=== PATIENT | female | born 1985 | race Hispanic/Latino ===

== ENCOUNTER 2019-09-18 17:08 | Emergency (ER) | payer OTHER ==
--- OUTSIDE RECORDS SUMMARY | 2019-09-18 17:10 | XMS REPORT ---
:1985 Author Organization [facility] Address [address] [place] [address] [address]. S[address]ano [address] [place] [address] Care Team Providers Name Role Phone Unavailable Unavailable Unavailable Payers Payer Name Policy Type Policy Number Effective Date Expiration Date Problems This patient has no known problems. Allergies, Adverse Reactions, Alerts Allergy Allergy Status Severity Reaction(s) Onset Inactive Treating Comments Name Type Date Date Clinician latex DA Active U 2017-10 00:00:0 0 Medications This patient has no known medications. Results Test Description Test Time Test Comments Text Results Atomic Results Result Comments HGB HCT 2019-06-01 08:36:00 Test Item Value Reference Range Comments HEMOGLOBIN (test code=HGB) 11.0 g/dL 10.7-13.9 HEMATOCRIT (test code=HCT) 35.4 % 32.1-42.1 AG HEPATITIS B [id number] 08:46:00 Test Item Value Reference Range Comments AG HEPATITIS B SURFACE (test code=HBSAG) NONREACTIVE NONREACTIVE IS CONSENT FORM SIGNED FOR HIV TESTING? YAB HEPATITIS C [id number] 08:46: 00 Test Item Value Reference Range Comments AB HEPATITIS C (test code=HCVAB) NONREACTIVE NONREACTIVE SIGNAL TO CUTOFF (test code=CUTOFF) <0.02 <0.80 IS CONSENT FORM SIGNED FOR HIV TESTING? YAB [id number] 08:46:00 Test Item Value Reference Range Comments AB TREPONEMA (test code=TREPAB) NONREACTIVE NONREACTIVE IS CONSENT FORM SIGNED FOR HIV TESTING? YAB HIV 1 08:46:00 Test Item Value Reference Range Comments AB HIV 1 2 (test NONREACTIVE NONREACTIVE Done by [employer] 4th code=MNL79QY) Gen HIV Ag/Ab Combo Screen IS CONSENT FORM SIGNED FOR HIV TESTING? YAG HEPATITIS B [id number] 08:22: 00 Test Item Value Reference Range Comments AG HEPATITIS B SURFACE (test code=HBSAG) NONREACTIVE NONREACTIVE IS CONSENT FORM SIGNED FOR HIV TESTING? YAB HEPATITIS C [id number] 08:22: 00 Test Item Value Reference Range Comments AB HEPATITIS C (test code=HCVAB) NONREACTIVE SIGNAL TO CUTOFF (test code=CUTOFF) <0.80 IS CONSENT FORM SIGNED FOR HIV TESTING? YAB [id number] 08:22:00 Test Item Value Reference Range Comments AB TREPONEMA (test code=TREPAB) NONREACTIVE NONREACTIVE IS CONSENT FORM SIGNED FOR HIV TESTING? YAB HIV 1 08:22:00 Test Item Value Reference Range Comments AB HIV 1 2 (test code=FYU18BM) NONREACTIVE IS CONSENT FORM SIGNED FOR HIV TESTING? YCOMPREHENSIVE METABOLIC [id number] 06:16:00 Test Item Value Reference Range Comments SODIUM (test code=NA) 136 mEq/L 135-145 POTASSIUM (test code=K) 5.9 mEq/L 3.5-5.0 CHLORIDE (test code=CL) 104 mEq/L 100-115 CARBON DIOXIDE (test code=CO2) 19 mEq/L 22-31 ANION GAP (test code=GAP) 18.90 10-20 GLUCOSE (test code=GLU) 122 mg/dL 65-110 BLOOD UREA NITROGEN (test code=BUN) 12 mg/dL 7-18 GLOMERULAR FILTRATION RATE (test code=GFR) 255 ml/min >60 CREATININE (test code=CREAT) 0.3 mg/dL 0.5-1.0 TOTAL PROTEIN (test code=PROT) 7.0 gm/dL 6.3-8.2 ALBUMIN (test code=ALB) 2.9 gm/dL 3.4-4.8 CALCIUM (test code=CA) 8.8 mg/dL 8.4-10.2 BILIRUBIN TOTAL (test code=BILT) 0.4 mg/dL 0.2-1.0 SGOT/AST (test code=AST) 77 units/L 15-37 SGPT/ALT (test code=ALT) 25 units/L 12-78 ALKALINE PHOSPHATASE TOTAL (test code=ALKP) 179 units/L 46-116 CBC W/AUTO [id number] 05:20:00 Test Item Value Reference Range Comments WHITE BLOOD CELL (test code=WBC) 10.2 K/mm3 6.6-12.1 RED BLOOD CELL (test code=RBC) 4.58 M/mm3 3.45-5.01 HEMOGLOBIN (test code=HGB) 13.6 g/dL 10.7-13.9 HEMATOCRIT (test code=HCT) 41.9 % 32.1-42.1 MEAN CELL VOLUME (test code=MCV) 92 fL 84.1-94.8 MEAN CELL HGB (test code=MCH) 29.7 pg 27-35 MEAN CELL HGB CONCETRATION (test code=MCHC) 32.5 gm/dL 32.2-34.1 RED CELL DISTRIBUTION WIDTH (test code=RDW) 14.7 % 12.4-16.5 PLATELET COUNT (test code=PLT) 165 K/mm3 133-385 IMMATURE PLATELET FRACTION (test code=IPF) 0.0 % 0.0-10.8 MEAN PLATELET VOLUME (test code=MPV) 11.7 fl 9.1-12.7 NEUTROPHIL % (test code=NT%) 64.4 % 56.5-79.4 LYMPHOCYTE % (test code=LY%) 26.2 % 14.3-34.3 MONOCYTE % (test code=MO%) 7.6 % 5.1-10.4 EOSINOPHIL % (test code=EO%) 0.7 % 0.1-3.0 BASOPHIL % (test code=BA%) 0.4 % 0.1-1.0 NEUTROPHIL # (test code=NT#) 6.6 K/mm3 LYMPHOCYTE # (test code=LY#) 2.7 K/mm3 MONOCYTE # (test code=MO#) 0.8 K/mm3 EOSINOPHIL # (test code=EO#) 0.07 K/mm3 BASOPHIL # (test code=BA#) 0.0 K/mm3 RBC MORPHOLOGY REQUIRED (test code=RBCM) NORMAL NORMAL PLATELET MORPHOLOGY REQUIRED (test code=PLTMR) NORMAL NORMAL AMNISURE (ROM) [id number] 09:27:00 Test Item Value Reference Range Comments AMNISURE (ROM) TEST (test code=AMNI) NON-RUPTURED NON-RUPTURE : *Specimen Comment: MACAmnisure QC OK? YES- US PREG AFTER [id number] 10: 38:00 Patient Name: JAMEEL PAZ Unit No: [id number] EXAMS: CPT CODE: [id number] US PREG AFTER [address] [facility] [address], [place] [address] OBSTETRICAL ULTRASOUND REPORT Pat. Name: JAMEEL PAZ Pat. No: [id number] Study Date: 01/25/2019 9:25am , Age: 08 1985 , 33 LMP: Unknown GA by US: 19w6d GA Selected: 19w4d (From Known E ) FREIDA: 06/17/2019 Referring MD: JI PAUL Audit Associate: Gerardo Love RDMS CPT4: [id number] Admitting MD: JI PAUL Hist/Ind: SCAN 1 ANATOMY SCAN MEASUREMENTS AGE GROWTH EVALUATION Measurement GA Range Srce %for GA Ratios ----- ---- ------- BPD 4.6 cm 19w6d (18w6d- 20w6d) Hadl BPD 63% FL/BPD 0.72 HC 17.2 cm 19w5d (45q4b-93m7c) Hadl HC 54% FL /AC 0.22 APD 4.8 cm APD HC/AC 1.13 (1.06 - 1.25 ) TAD 4.9 cm TAD CI 0.79 (0.70 - 0.86) AC 15.2 cm 20w1d (88g9s-96f8j) Hadl AC 63% FL 3.3 cm 20w0d (66e4i-97t0d) Hadl FL 58% HL 3.1 cm 20w2d (60s9j-63c0z) Evert HL 62% GA for sonogram 19w6d (28y1c-00q7p ) Weight Estimate: based on (BPD,HC,AC,FL) Hadlock Weight: 346 gm( 295-396) Hadlock : 0lbs, 12oz Cervical Length: 4.1 cm Heart Rate: 137 bpm CLINICAL SUMMARY Type of Gestation : [place] Intrauterine in transverse presentation. size is appropriate for gestational age by weight. growth: Consistent with normal growth motion and organs seen: heart motion seen bodyand limb movements seen Four chamber heart observed Left ventricular outflow tract(LVOT) seen Right ventricular outflow tract (RVOT) seen Normal intracranial anatomy seen Umbilical cord insertion in fetus seen stomach, Renal Fossa, Bladder and Spine seen Three vessel umbilical cord noted abnormalities observed: None seen at this exam Placental location: [facility] NAME: MAXIBRAYDENJAMEEL VILA Radiology Department PHYS: Ji Krishnan III, MD [address] : 1985 AGE: 33 SEX: F [place], [place] [address] LOC: MariiaRAD PHONE #: [phone] EXAM DATE: 01/25/2019 STATUS: REG CLI FAX #: RAD NO: Page 1 Signed Report (CONTINUED) Patient Name: MAXIKIASALLYJAMEEL Unit No: [id number] EXAMS: CPT CODE: [id number] US PREG AFTER 1ST TRI [address]89 <Continued> Posterior Placental maturity : Grade 1 There is no evidence of placenta previa. Amniotic fluid volume is normal. Uterus and adnexa: No significant abnormalities seen Thank you for allowing us to participate in the care of this patient. Jon Russ M.D. Electronic Signature 01/25/201910:38am at 1038 Reported and signed by: Jon Russ MD CC: Ji Paul III, MD Technologist: Gerardo Love RDMS Probe: Trnscrbd D/ (1038) [email or web address] Orig Print D/T: S: 01/25/2019 (1038) [facility] NAME: JAMEEL PAZ Radiology Department PHYS: Ji Krishnan III, MD [address] : 1985 AGE :33 SEX: F [place] [address] LOC : Estela.RAD PHONE #: [phone] EXAM DATE: 01/25/2019 STATUS : REG CLI FAX #: [phone] RAD NO: Page 2 Signed Report Patient Name: JAMEEL PAZ Unit No: [id number] EXAMS: CPT CODE: [id number] US PREG AFTER 1ST TRI [address]347 < Continued> [facility] NAME: JAMEEL PAZ Radiology Department PHYS: Ji Krishnan III, MD [address] : 1985 AGE: 33 SEX: F [place] [address] LOC: F.RAD PHONE #: EXAM DATE: 01/25/2019 STATUS: REG CLI FAX #: [phone] RAD NO:Page 3 Signed Report
--- NOTE | 2019-09-18 17:56 | RAD REPORT ---
EXAM DESCRIPTION: RAD - Chest Pa And Lat (2 Views) - 09/18/2019 5:46 pm CLINICAL HISTORY: CHEST PAIN Chest pain. COMPARISON: No comparisons FINDINGS: The lungs are clear. The heart is normal in size. No displaced fractures. IMPRESSION: No acute or concerning finding suspected.
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
[2019-09-18 20:29] VITALS: BP 129/80; TEMP 98.2; O2SAT 99
--- NOTE | 2019-09-19 22:59 | EKG ---
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
== END 2019-09-18 18:22 | disposition home or self-care (01) ==
LOC: ER 17:08
DX: G89.11 Acute pain due to trauma (principal); V43.52XA Car driver injured in collision with other type car in traffic accident, initial encounter; Y93.89 Activity, other specified; Y92.410 Unspecified street and highway as the place of occurrence of the external cause
CPT/HCPCS: 71046; 93005; 99284

== ENCOUNTER 2021-11-10 13:47 | Emergency (ER) | payer OTHER ==
--- OUTSIDE RECORDS SUMMARY | 2021-11-10 13:50 | XMS REPORT | Continuity of Care Document ---
:1985 Author Organization [facility] t Address [address] [place] [address] Care Team Providers Name Role Phone Marilou TORRES Attending Clinician Unavailable Provider, Urgent Care Attending Clinician Unavailable Kanchan De La Cruz MD Attending Clinician Kanchan DE LA CRUZ Attending Clinician Unavailable Seymour PERRY Attending Clinician SEYMOUR Attending Clinician Unavailable Dmitry SHAHID Attending Clinician Payers Payer Name Policy Type Policy Number Effective Date Expiration Date S jacque BARKLEY CHOICE POS [id number] 3565-01-01 00:00:00 II Problems Condition Condition Condition Status Onset Resolution Last Treating Co mments Source Name Details Category Date Date Treatment Clinician Date No known No known Disease Unive rs active active ity of problems problems [facility] Allergies, Adverse Reactions, Alerts Allergy Allergy Status Severity Reaction(s) Onset Inactive Treating Comm ents Source Name Type Date Date Clinician Latex Propensi Active Rash 2019-10 Univers ty to 2-04 ity of adverse 00:00: [place] reaction 00 [facility] LATEX DRUG Active Rash 2019-10 Univers INGREDI 2-04 ity of 00:00: [place] 00 [facility] latex DA Active U [facility] 11[facility]10 [facility] 00:[facility] [place] NO KNOWN Drug Active Univers ALLERGIE Class ity of [facility] Social History Social Habit Start Date Stop Date Quantity Comments Source Exposure to Not sure [facility] SARS-CoV-2 (event) Medica l [place] Tobacco use and 2021-02-13 2021-02-13 Never used [facility] missy [facility] exposure 00:00:00 00:00:00 [facility] Sex Ass[birth year] At [birth year] [facility] 00:00:00 00:00:00 [facility] Smoking Status Start Date Stop Date Source Never smoker General acute hospital Unknown if ever smoked [facility] Medications Ordered Filled Start Stop Current Ordering Indication Dosage Frequency Signature Comments Components Source Medication Medication Date Date Medication? Clinician (SIG) Name Name mometasone Yes [id number] 1{spray Use 1 Univers (NASONEX) 1-10 } [place] in ity of 50 00:00: each [place] mcg/actuati 00 nostril Medic al on nasal daily. Branch spray mometasone Yes [id number] 1{spray Use 1 Univers (NASONEX) 1-10 } [place] in ity of 50 00:00: each [place] mcg/actuati 00 nostril Medic al on nasal daily. Branch spray amoxicillin 2020- No [id number] 1{tbl} Take 1 Univers -clavulanat 1-10 11-02 tablet by it y of e 875-125 00:00: 05:59 mouth 2 [place] mg per 00 :00 (two) Medical tablet times [place] daily for 7 days. erythromyci 2019-10 Yes .5[in_u 0.5 Inch, Univers n 2-04 s] Right Eye, ity of (ILOTYCIN) 14:00: TID, First [place] 5 mg/gram 00 dose on Medical (0.5 %) Mon [place] ophthalmic 09/18/20 at ointment 0800, 0.5 Inch Until Discontinu ed, Routine proparacain 2019-10 2020- No 2[drp] 2 Drop, Univers e (ALCAINE) 2-04 Right Eye, i ty of 0.5 % 08:39: 08:45 ONCE, 1 [place] ophthalmic 00 :00 dose, Fri Medi sara solution 2 09/18/20 at [facility] Drop 0245, NGHIA No known No Univers medications [facility] No known No Univers medications [facility] Immunizations Ordered Filled Immunization Date Status Comments [facility] e Immunization Name Name SARS-COV-2 COVID-19 2021-01-22 Completed Unive rsity of PFIZER VACCINE 00:00:00 [facility] Vital Signs Vital Name Observation Time Observation Value Comments Source Systolic blood 2021-02-13 15:15:00 104 mm[Hg] Univer sity of pressure [place] [facility] Diastolic blood 2021-02-13 15:15:00 45 mm[Hg] Unive rsity of pressure [facility] Heart rate 2021-02-13 15:15:00 86 /min [facility]i [facility] [place] [facility] Body temperature 2021-02-13 15:15:00 36.61 Anna Univ ersity of [place] [facility] Respiratory rate 2021-02-13 15:15:00 18 /min Univ ersity of [place] [facility] Body height 2021-02-13 15:15:00 152.4 cm [facility]i ty [facility] [place] [facility] Body weight 2021-02-13 15:15:00 55.339 kg [facility] [place] [facility] BMI 2021-02-13 15:15:00 23.83 kg/m2 [facility]i ty [facility] [place] [facility] Oxygen saturation in 2021-02-13 15:15:00 97 /min University of Arterial blood by [facility] Pulse oximetry Branch Systolic blood 2020-10-25 14:22:00 110 mm[Hg] Univer sity of pressure [place] [facility] Diastolic blood 2020-10-25 14:22:00 76 mm[Hg] Unive rsity of pressure [place] [facility] Heart rate 2020-10-25 14:22:00 92 /min [facility]i ty [facility] [place] [facility] Body temperature 2020-10-25 14:22:00 36.78 Anna Univ ersity [facility] [place] [facility] Respiratory rate 2020-10-25 14:22:00 18 /min Univ ersity [facility] [place] [facility] Body height 2020-10-25 14:22:00 152.4 cm [facility] [place] [facility] Body weight 2020-10-25 14:22:00 55.339 kg [facility]i [facility] [place] [facility] BMI 2020-10-25 14:22:00 23.83 kg/m2 [facility]i ty [facility] [place] [facility] Oxygen saturation in 2020-10-25 14:22:00 97 /min University of Arterial blood by [facility] Pulse oximetry Branch Systolic blood 2020-09-26 15:47:00 115 mm[Hg] Univer sity of pressure [facility] Diastolic blood 2020-09-26 15:47:00 69 mm[Hg] Unive rsity of pressure [facility] Heart rate 2020-09-26 15:47:00 68 /min Universi ty of [facility] Body temperature 2020-09-26 15:47:00 36.11 Anna Univ ersity of [facility] Respiratory rate 2020-09-26 15:47:00 17 /min Univ ersity of [facility] Body height 2020-09-26 15:47:00 152.4 cm Universi ty of [place] [facility] [place] Body weight 2020-09-26 15:47:00 55.[address] [facility] BMI 2020-09-26 15:47:00 23.83 kg/m2 Universi ty of [facility] Oxygen saturation in 2020-09-26 15:47:00 99 /min University of Arterial blood by [facility] Pulse oximetry Branch Systolic blood 2020-09-18 10:48:15 107 mm[Hg] Univer sity of pressure [facility] Diastolic blood 2020-09-18 10:48:15 69 mm[Hg] Unive rsity of pressure [facility] Heart rate 2020-09-18 10:48:15 68 /min Universi ty of [facility] Respiratory rate 2020-09-18 10:48:15 14 /min [facility] Oxygen saturation in 2020-09-18 10:48:15 98 /min University of Arterial blood by [facility] Pulse oximetry Branch Body temperature 2020-09-18 07:56:00 36.5 Anna Univ ersity of [facility] Body weight 2020-09-18 07:56:00 55.339 kg Universi ty [facility] Procedures Procedure Date / Time Performed Performing Clinician Sourc e POCT GRP A STREP 2020-09-26 16:14:00 Gabbie Ahuja [facility] ([facility]) [facility] Encounters Start End Encounter Admission Attending Care Care Encounter Source Date/Time Date/Time Type Type Clinicians Facility Department ID 2021-08-14 Emergency [facility] [id number] Univers [facility] 2021-02-15 2021-02-15 Outpatient Aleks TORRES [facility] [id number] Univers 08:40:00 08:40:00 GENO [facility] 2021-02-13 2021-02-13 Outpatient MELISSA [facility] [id number] Univers 11:50:00 11:50:00 GENO [facility] 2021-02-13 2021-02-13 Outpatient R MELISSA [facility] [id number] Univers 11:40:00 11:40:00 [facility] 2021-02-13 2021-02-13 Urgent Provider, [facility] [id number] Univers 09:57:12 11:04:47 Care Modesto De La Cruz [facility] [id number] ity of [place] [id number] Nirmal as Professio [phone] Id dicga nal [address] [place] [address] One 2021-02-13 2021-02-13 Outpatient R [facility] [id number] Univers 10:00:00 10:00:00 [id number] [facility] 2021-02-13 2021-02-13 [facility] [id number] Univers 10:00:00 10:00:00 MODESTO [facility] 2021-02-12 2021-02-12 [facility] [id number] Univers 11:50:00 11:50:00 [facility] [place] 2021-01-22 2021-01-22 Outpatient [facility] [id number] Univers 10:15:00 10:15:[facility] 2020-10-25 2020-10-25 Urgent Provider, [facility] [id number] Univers 08:17:43 08:37:43 Fbaian Seymour [facility] [id number] ity of [place] [id number] [place] as Professio [phone] [facility] 044 [facility] One 2020-10-25 2020-10-25 [facility] [id number] Univers 08:20:00 08:20:00 [facility] 2020-10-25 2020-10-25 Outpatient R [facility] [id number] Univers 08:20:00 08:20:00 [id number] ity [facility] 2020-09-26 2020-09-26 Urgent Provider, [facility] [id number] Univers 09:42:59 10:02:59 Fabian Ahuja [facility] [id number] ity of [place] [id number] [place] as Professio [phone] Id dical [address] Office Building One 2020-09-26 2020-09-26 Outpatient R [facility] [id number] Univers 09:40:00 09:40:00 [id number] [facility] 2020-09-26 2020-09-26 [facility] [id number] Univers 09:40:00 09:40:00 [facility] 2020-09-18 2020-09-18 Emergency [facility] [id number] Univers 01:57:00 05:15:00 , [facility] [id number] [id number] [phone] [address] 2020-06-01 2020-06-01 Outpatient R [facility] [id number] Univers 13:00:00 13:00:00 [facility] Results Test Description Test Time Test Comments Results Result Comments Source POCT GRP A STREP (MOLECULAR) 2020-09-26 16:14:00 Test Item Value Reference Range Interpretation Comme nts POCT GP A STREP (test code = 84575-7) Negative Negative - Negat farnaz Lab Interpretation (test code = 01971-9) [facility] [id number] 08:36:00 Test Item Value Reference Range Interpretation Comments HEMOGLOBIN (test code = HGB) 11.0 g/dL 10.7-13.9 N HEMATOCRIT (test code = HCT) 35.4 % 32.1-42.1 N AG HEPATITIS B [id number] 08:46:00 Test Item Value Reference Range Interpretation Comments AG HEPATITIS B SURFACE (test code NONREACTIVE NONREACTIVE = HBSAG) IS CONSENT FORM SIGNED FOR HIV TESTING? YAB HEPATITIS C [id number] 08:46:00 Test Item Value Reference Range Interpretation Comments AB HEPATITIS C (test code = NONREACTIVE NONREACTIVE HCVAB) SIGNAL TO CUTOFF (test code = <0.02 <0.80 N CUTOFF) IS CONSENT FORM SIGNED FOR HIV TESTING? OSCAR [id number] 08:46:00 Test Item Value Reference Range Interpretation Comments AB TREPONEMA (test code = TREPAB) NONREACTIVE NONREACTIVE IS CONSENT FORM SIGNED FOR HIV TESTING? OSCAR HIV 1 08:46:00 Test Item Value Reference Range Interpretation Comments AB HIV 1 2 (test NONREACTIVE NONREACTIVE Done by [facility] code = [id number]) 4th Gen HIV Ag/Ab Combo Screen IS CONSENT FORM SIGNED FOR HIV TESTING? YAG HEPATITIS B [id number] 08:22:00 Test Item Value Reference Range Interpretation Comments AG HEPATITIS B SURFACE (test code NONREACTIVE NONREACTIVE = HBSAG) IS CONSENT FORM SIGNED FOR HIV TESTING? [facility] HEPATITIS C [id number] 08:22:00 Test Item Value Reference Range Interpretation Comments AB HEPATITIS C (test code = HCVAB) NONREACTIVE SIGNAL TO CUTOFF (test code = CUTOFF) <0.80 IS CONSENT FORM SIGNED FOR HIV TESTING? OSCAR [id number] 08:22:00 Test Item Value Reference Range Interpretation Comments AB TREPONEMA (test code = TREPAB) NONREACTIVE NONREACTIVE IS CONSENT FORM SIGNED FOR HIV TESTING? OSCAR HIV 1 08:22:00 Test Item Value Reference Range Interpretation Comments AB HIV 1 2 (test code = [id number]) NONREACTIVE IS CONSENT FORM SIGNED FOR HIV TESTING? YCOMPREHENSIVE METABOLIC [id number] 06:16:00 Test Item Value Reference Range Interpretation Comments SODIUM (test code = NA) 136 mEq/L 135-145 N POTASSIUM (test code = K) 5.9 mEq/L 3.5-5.0 H CHLORIDE (test code = CL) 104 mEq/L 100-115 N CARBON DIOXIDE (test code = CO2) 19 mEq/L 22-31 L ANION GAP (test code = GAP) 18.90 10-20 N GLUCOSE (test code = GLU) 122 mg/dL 65-110 H BLOOD UREA NITROGEN (test code = 12 mg/dL 7-18 N BUN) GLOMERULAR FILTRATION RATE (test 255 ml/min >60 N code = GFR) CREATININE (test code = CREAT) 0.3 mg/dL 0.5-1.0 L TOTAL PROTEIN (test code = PROT) 7.0 gm/dL 6.3-8.2 N ALBUMIN (test code = ALB) 2.9 gm/dL 3.4-4.8 L CALCIUM (test code = CA) 8.8 mg/dL 8.4-10.2 N BILIRUBIN TOTAL (test code = 0.4 mg/dL 0.2-1.0 N BILT) SGOT/AST (test code = AST) 77 units/L 15-37 H SGPT/ALT (test code = ALT) 25 units/L 12-78 N ALKALINE PHOSPHATASE TOTAL (test 179 units/L 46-116 H code = ALKP) CBC W/AUTO [id number] 05:20:00 Test Item Value Reference Range Interpretation Comments WHITE BLOOD CELL (test code = WBC) 10.2 K/mm3 6.6-12.1 N RED BLOOD CELL (test code = RBC) 4.58 M/mm3 3.45-5.01 N HEMOGLOBIN (test code = HGB) 13.6 g/dL 10.7-13.9 N HEMATOCRIT (test code = HCT) 41.9 % 32.1-42.1 N MEAN CELL VOLUME (test code = MCV) 92 fL 84.1-94.8 N MEAN CELL HGB (test code = MCH) 29.7 pg 27-35 N MEAN CELL HGB CONCETRATION (test 32.5 gm/dL 32.2-34.1 N code = MCHC) RED CELL DISTRIBUTION WIDTH (test 14.7 % 12.4-16.5 N code = RDW) PLATELET COUNT (test code = PLT) 165 K/mm3 133-385 N IMMATURE PLATELET FRACTION (test 0.0 % 0.0-10.8 N code = IPF) MEAN PLATELET VOLUME (test code = 11.7 fl 9.1-12.7 N MPV) NEUTROPHIL % (test code = NT%) 64.4 % 56.5-79.4 N LYMPHOCYTE % (test code = LY%) 26.2 % 14.3-34.3 N MONOCYTE % (test code = MO%) 7.6 % 5.1-10.4 N EOSINOPHIL % (test code = EO%) 0.7 % 0.1-3.0 N BASOPHIL % (test code = BA%) 0.4 % 0.1-1.0 N NEUTROPHIL # (test code = NT#) 6.6 K/mm3 LYMPHOCYTE # (test code = LY#) 2.7 K/mm3 MONOCYTE # (test code = MO#) 0.8 K/mm3 EOSINOPHIL # (test code = EO#) 0.07 K/mm3 BASOPHIL # (test code = BA#) 0.0 K/mm3 RBC MORPHOLOGY REQUIRED (test code NORMAL NORMAL = RBCM) PLATELET MORPHOLOGY REQUIRED (test NORMAL NORMAL code = PLTMR) AMNISURE (ROM) [id number] 09:27:00 Test Item Value Reference Range Interpretation Comments AMNISURE (ROM) TEST (test code = NON-RUPTURED NON-RUPTURE AMNI) : *Specimen Comment: MACAmnisure QC OK? YES- US PREG AFTER [id number] 10:38:00 Patient Name: JAMEEL PAZ Unit No: [id number] EXAMS: CPT CODE: [id number] US PREG AFTER [address] [facility] [address] [place], [place] [address] OBSTETRICAL ULTRASOUND REPORT Pat. Name: JAMEEL PAZ Pat. No: [id number] Study Date: 01/25/2019 9:25am , Age: 08 1985, 33 LMP: Unknown GA by US: 19w6d GA Selected: 19w4d (From Known E) FREIDA: 06/17/2019 Referring MD: JI COLEMAN onographer: Gerardo Love RDMS CPT4: [id number] Admitting MD: JI COLEMAN Hist/Ind: SCAN 1 ANATOMY SCAN MEASUREMENTS AGE GROWTH EVALUATION Measurement GA Range Srce %for GA Ratios ----- ---- ------- BPD 4.6 cm 19w6d (10d5f-64l1o) Hadl BPD 63% FL/BPD 0.72 HC 17.2 cm 19w5d (67k9d-89y9j) Hadl HC 54% FL/AC 0.22 APD 4.8 cm APD HC/AC 1.13 (1.06 - 1.25) TAD 4.9 cm TAD CI 0.79 (0.70 - 0.86) AC 15.2 cm 20w1d (58r4l-30y3e) Hadl AC 63% FL 3.3 cm 20w0d (38h5c-19k2f) Hadl FL 58% HL 3.1 cm 20w2d (17w4d- 23w0d) Evert HL 62% GA for sonogram 19w6d (89s6m-40i9f) Weight Estimate: based on (BPD,HC,AC,FL) [place] Weight: 346 gm(295-396) [place] : 0lbs, 12oz Cervical Length: 4.1 cm Heart Rate: 137 bpm CLINICAL SUMMARY Type of Gestation: [place] Intrauterine in transverse presentation. size is [...] noted abnormalities observed: None seen at this e xam Placental location: [facility] NAME: JAMEEL PAZ Radiology Department PHYS: Ji Krishnan III, MD [address] : 1985 AGE: 33 SEX: F [place], [place] [address] LOC: Estela.RAD PHONE #: [phone] EXAM DATE: 01/25/2019 STATUS: REG CLI FAX #: [phone] RAD NO: Page 1 Signed Report (CONTINUED) Patient Name: JAMEEL ALMONTE Unit No: [id number] EXAMS: CPT CODE: [id number] US PREG AFTER 1ST TRI 26670 <Continued> Posterior Placental maturity : Grade 1 There is no evidence of placenta previa. Amniotic fluid volume is normal. Uterus and adnexa: No significant abnormalities seen Thank you for allowing us to participate in the care of this patient. Jon Russ M.D. Electronic Signature 01/25/201910:38am at 1038 Reported and signed by: Jon Russ MD CC: Ji Coleman III, MD Technologist: Gerardo Love RDMS Probe: Trnscrbd D/ (1038) [email or web address] Orig Print D/T: S: 01/25/2019 (1038) [facility] NAME: ZONIAELIAZARJAMEEL ZAVALA Radiology Department PHYS: Ji Krishnan III, MD [address] : 1985 AGE:33 SEX: F [place], [place] [address] LOC: Estela.RAD PHONE #: [phone] EXAM DATE: 01/25/2019 STATUS: REG CLI FAX #: [phone] RAD NO: Page 2 Signed Report Patient Name: JAMEEL PAZ Unit No: [id number] EXAMS: CPT CODE: [id number] US PREG AFTER 1ST TRI 31468 <Continued> [facility] [place] NAME: JAMEEL PAZ Radiology Department PHYS: Ji Krishnan III, MD [address] : 1985 AGE: 33 SEX: F [place], [place] [address] LOC: Estela.RAD PHONE #: [phone] EXAM DATE: 01/25/2019 STATUS: REG CLI FAX #: [phone] RAD NO:Page 3 Signed Report
[2021-11-10 14:53] LABS: Urine Blood Negative (Negative); Urine Glucose Negative (Negative); Urine Protein Negative (Negative); Urine Specific Gravity 1.025 (1.005-1.030)
[2021-11-10 14:59] LABS: Absolute Lymphocytes (CBC) 2.1 K/uL (0.7-4.9); Hematocrit 42.4 % (36.0-45.0); Lymphocytes % 29.4 % (15.3-44.8); MPV 8.2 fL (7.6-11.3); RBC Red Blood Cell Count 4.76 M/uL (3.86-4.86)
[2021-11-10 15:22] LABS: Albumin 4.3 g/dL (3.4-5.0); Bilirubin Direct 0.1 mg/dL (0-0.2); Bilirubin Total 0.4 mg/dL (0.2-1.0); Potassium 3.5 mmol/L (3.5-5.1); Protein, Total 8.6 g/dL (6.4-8.2)
[2021-11-10] MEDS ORDERED: NA CHLORIDE 0.9% 1,000 ML ONE (15:24)
[2021-11-10] MEDS ORDERED: ONDANSETRON 4 MG/2 ML VIAL ONE (15:24)
[2021-11-10] MEDS ORDERED: KETOROLAC 30 MG/ML INJ ONE (15:24)
--- NOTE | 2021-11-10 15:45 | RAD REPORT ---
EXAM DESCRIPTION: CTAbdomen Pelvis W Contrast - 11/10/2021 3:34 pm CLINICAL HISTORY: Abdominal pain. right side abdomen pain COMPARISON: No comparisons TECHNIQUE: Biphasic CT imaging of the abdomen and pelvis was performed with 100 ml non-ionic IV cont rast. All CT scans are performed using dose optimization technique as appropriate and may include automated exposure control or mA/KV adjustment according to patient size. FINDINGS: The lung bases are clear. The liver, spleen, pancreas, adrenal glands and kidneys are within normal limits. No bowel obstruction, free air, free fluid or abscess. Significant stool is retained throughout the c olon with fecalization of the distal small bowel noted. The appendix is normal. No evidence of signi ficant lymphadenopathy. No suspicious bony findings. IMPRESSION: Significant constipation pattern is present with fecalization of the distal small bowel. Normal appendix.
[2021-11-10 15:54] LABS: Urine Bacteria <20 /HPF (<20); Urine RBC <5 /HPF (NONE SEEN)
[2021-11-10 16:10] LABS: Urine Specific Gravity/Preg 1.025 (1.005-1.030)
--- NOTE | 2021-11-10 16:33 | RAD REPORT ---
EXAM DESCRIPTION: RAD - Chest Single View - 11/10/2021 4:28 pm CLINICAL HISTORY: abdominal pain Chest pain. COMPARISON: Chest Pa And Lat (2 Views) dated 09/18/2019 FINDINGS: Portable technique limits examination quality. The lungs are grossly clear. The heart is normal in size. No displaced fractures. IMPRESSION: No acute intrathoracic process suspected.
--- NOTE | 2021-11-10 16:33 | RAD REPORT ---
EXAM DESCRIPTION: US - Abdomen Exam Limited - 11/10/2021 4:25 pm CLINICAL HISTORY: ABD PAIN COMPARISON: No comparisons FINDINGS: The gallbladder demonstrates no gallstones. No pericholecystic fluid or gallbladder wall t hickening. The common bile duct is normal measuring 2 mm. The liver demonstrates no findings of intrahepatic biliary dilatation. IMPRESSION: Unremarkable examination.
--- NOTE | 2021-11-10 16:59 | EDPHYS ---
Physician Documentation [facility] Name: Adriana Cerna Age: 36 yrs Sex: Female : 1985 Arrival Date: 11/10/2021 Time: 13:48 Bed 30 Private MD: Michel [facility] ED Physician Adrian Perez HPI: 11/10 15:00 This 36 yrs old Female presents to ER via Ambulatory with complaints of cp Abdominal Pain - RLQ. 15:00 The patient presents with abdominal pain right lower quadrant. Onset: The cp symptoms/episode began/occurred last night. The symptoms do not radiate. Associated signs and symptoms: Pertinent positives: constipation, Pertinent negatives: nausea and vomiting, blood in stools, diarrhea, dysuria, fever. The symptoms are described as constant. Modifying factors: the symptoms are aggravated by movement. Severity of pain: in the emergency department the pain is unchanged despite home interventions. Historical: - Allergies: 13:57 Latex, Natural Rubber; ld1 - Home Meds: 13:57 None [Active]; ld1 - PMHx: 13:57 None; ld1 - PSHx: 13:57 section; ld1 - Immunization history:: Adult Immunizations up to date, Client reports receiving the 2nd dose of the Covid vaccine, pfizer. - Social history:: Smoking status: Patient reports the use of cigarette tobacco products, Patient/guardian denies using alcohol. ROS: 15:05 Constitutional: Negative for body aches, chills, fever, poor PO intake. cp 15:05 Eyes: Negative for injury, pain, redness, and discharge. cp 15:05 ENT: Negative for ear pain, sore throat, difficulty swallowing, difficulty handling secretions. 15:05 Respiratory: Negative for cough, shortness of breath, wheezing. 15:05 Abdomen/GI: Positive for abdominal pain, constipation, Negative for vomiting, diarrhea. 15:05 Back: Positive for pain at rest, of the low back area. 15:05 : Negative for urinary symptoms, vaginal bleeding. 15:05 Neuro: Negative for altered mental status, headache, weakness. 15:05 All other systems are negative. Exam: 15:10 Constitutional: The patient appears in no acute distress, alert, awake, non-toxic, well cp developed, well nourished. 15:10 Head/Face: Normocephalic, atraumatic. cp 15:10 Eyes: Periorbital structures: appear normal, Conjunctiva: normal, no exudate, no injection, Sclera: no appreciated abnormality, Lids and lashes: appear normal, bilaterally. 15:10 ENT: External ear(s): are unremarkable, Nose: is normal, Posterior pharynx: Airway: no evidence of obstruction, patent. 15:10 Chest/axilla: Inspection: normal. 15:10 Cardiovascular: Rate: normal. 15:10 Respiratory: the patient does not display signs of respiratory distress, Respirations: normal, no use of accessory muscles, no retractions, labored breathing, is not present, Breath sounds: are clear throughout, no decreased breath sounds. 15:10 Abdomen/GI: Inspection: abdomen appears normal, Bowel sounds: active, all quadrants, Palpation: soft, in all quadrants, mild abdominal tenderness, in the right lower quadrant, rebound tenderness, is not appreciated, involuntary guarding, is not appreciated. 15:10 Back: pain, that is very mild, of the low back area, ROM is normal. 15:10 Neuro: Motor: moves all fours, strength is normal, Sensation: is normal, Gait: is steady. Vital Signs: 13:56 BP 104 / 76; Pulse 79; Resp 18; Temp 98.2(TE); Pulse Ox 100% on R/A; Weight 56.25 kg; ld1 Height 5 ft. 0 in. (152.40 cm); Pain 2/10; 15:38 BP 117 / 80; Pulse 72; Resp 16; Pulse Ox 100% on R/A; ab2 16:36 BP 109 / 56; Pulse 66; Resp 16; Pulse Ox 98% on R/A; ab2 13:56 Body Mass Index 24.22 (56.25 kg, 152.40 cm) ld1 MDM: 14:41 Patient medically screened. cp 16:57 Data reviewed: vital signs, nurses notes, lab test result(s), radiologic studies, CT cp scan. 16:57 Differential diagnosis: appendicitis, bowel obstruction, non-specific abd pain, Ovarian cp Torsion, Pelvic Inflammatory Disease, Pyelonephritis, Ureterolithiasis, urinary tract infection. Counseling: I had a detailed discussion with the patient and/or guardian regarding: the historical points, exam findings, and any diagnostic results supporting the discharge/admit diagnosis, lab results, radiology results, to return to the emergency department if symptoms worsen or persist or if there are any questions or concerns that arise at home. Special discussion: Based on the patient's Hx, exam, and Dx evaluation, there is no indication for emergent surgery or inpatient Tx. It is understood by the patient/guardian that if the Sx's persist or worsen they need to return immediately for re-evaluation. 11/10 14:41 Order name: Basic Metabolic Panel; Complete Time: 15:53 11/10 16:53 Interpretation: Normal except: GFR 87. 11/10 14:41 Order name: CBC with Diff; Complete Time: 15:53 11/10 14:41 Order name: Hepatic Function; Complete Time: 15:53 cp 11/10 16:53 Interpretation: TP 8.6; GLOB 4.3; A/G 1.0. 11/10 14:41 Order name: Lipase; Complete Time: 15:53 11/10 14:41 Order name: Urine Microscopic Only; Complete Time: 16:50 11/10 14:53 Order name: Urine Dipstick-Ancillary EDAZ 11/10 14:41 Order name: IV Saline Lock; Complete Time: 14:54 11/10 14:58 Order name: CT Abd/Pelvis - IV Contrast Only; Complete Time: 15:53 11/10 16:53 Interpretation: Report reviewed. 11/10 14:59 Order name: Urine --Ancillary (enter results); Complete Time: 16:50 11/10 15:54 Order name: US Abdomen Limited: RUQ; Complete Time: 16:50 11/10 16:51 Interpretation: Report reviewed. 11/10 15:54 Order name: XRAY Chest (1 view); Complete Time: 16:50 11/10 14:41 Order name: Labs collected and sent; Complete Time: 14:54 cp 11/10 14:41 Order name: Urine Dipstick-Ancillary (obtain specimen); Complete Time: 14:54 11/10 14:41 Order name: Urine Test (obtain specimen); Complete Time: 14:53 cp Administered Medications: 15:25 Drug: Ketorolac 15 mg Route: IVP; Site: right antecubital; ab2 17:05 Follow up: Response: No adverse reaction ab2 15:25 Drug: NS 0.9% 1000 ml Route: IV; Rate: 1 bolus; Site: right antecubital; ab2 17:05 Follow up: IV Status: Completed infusion ab2 15:25 Drug: Zofran (Ondansetron) 4 mg Route: IVP; Site: right antecubital; ab2 17:05 Follow up: Response: No adverse reaction ab2 Disposition Summary: 11/10/21 16:58 Discharge Ordered Location: Home cp Problem: new cp Symptoms: have improved cp Condition: Stable cp Diagnosis - Constipation, unspecified cp Followup: cp - With: Private Physician - When: 2 - 3 days - Reason: Worsening of condition Discharge Instructions: - Discharge Summary Sheet cp - Constipation, Adult cp - High-Fiber Diet cp Forms: - Medication Reconciliation Form cp - Thank You Letter cp - Antibiotic Education cp - Prescription Opioid Use cp Prescriptions: - Miralax 17 gram Oral powder in packet - take 1 packet by ORAL route once daily; 1 bottle; Refills: 0, Product Selection cp Permitted Signatures: Dispatcher [employer] Son Flores PA PA cp Dottie Snider, RN RN ld1 Kristian Todd ab2
--- NOTE | 2021-11-10 16:59 | ER ---
Nurse's Notes [facility] Name: Adriana Cerna Age: 36 yrs Sex: Female : 1985 Arrival Date: 11/10/2021 Time: 13:48 Bed 30 Private MD: Raad Pearson Diagnosis: Constipation, unspecified Presentation: 11/10 13:56 Chief complaint: Patient states: RLQ pain starting last night. When rolling in bed - ld1 sharp pain. Coronavirus screen: At this time, the client does not indicate any symptoms associated with coronavirus-19. Ebola Screen: No symptoms or risks identified at this time. Initial Sepsis Screen: Does the patient meet any 2 criteria? No. Patient's initial sepsis screen is negative. Does the patient have a suspected source of infection? No. Patient's initial sepsis screen is negative. Risk Assessment: Do you want to hurt yourself or someone else? Patient reports no desire to harm self or others. Onset of symptoms was November 10, 2021. 13:56 Method Of Arrival: Ambulatory ld1 13:56 Acuity: SEUN 3 ld1 Triage Assessment: 13:57 General: Appears in no apparent distress. comfortable, Behavior is calm, cooperative, ld1 appropriate for age. Pain: Complains of pain in right lower quadrant Pain does not radiate. Pain currently is 3 out of 10 on a pain scale. at worst was 4 out of 10 on a pain scale. Quality of pain is described as burning, Pain began gradually, Is intermittent. Neuro: Level of Consciousness is awake, alert, obeys commands, Oriented to person, place, time, situation. Respiratory: Airway is patent Respiratory effort is even, unlabored. GI: Abdomen is flat, non-distended, Reports lower abdominal pain. Historical: - Allergies: 13:57 Latex, Natural Rubber; ld1 - Home Meds: 13:57 None [Active]; ld1 - PMHx: 13:57 None; ld1 - PSHx: 13:57 section; ld1 - Immunization history:: Adult Immunizations up to date, Client reports receiving the 2nd dose of the Covid vaccine, pfizer. - Social history:: Smoking status: Patient reports the use of cigarette tobacco products, Patient/guardian denies using alcohol. Screenin:39 Abuse screen: Denies threats or abuse. Denies injuries from another. Nutritional ab2 screening: No deficits noted. Tuberculosis screening: No symptoms or risk factors identified. Fall Risk None identified. Assessment: 14:37 General: Appears in no apparent distress. comfortable, Behavior is calm, cooperative, ab2 appropriate for age. Pain: Complains of pain in right upper quadrant and right lower quadrant Pain currently is 6 out of 10 on a pain scale. Neuro: No deficits noted. Level of Consciousness is awake, alert, obeys commands, Oriented to person, place, time, situation, Appropriate for age Content Director are equal bilaterally Moves all extremities. Gait is steady, Speech is normal, Facial symmetry appears normal. Cardiovascular: No deficits noted. Denies chest pain, shortness of breath, Heart tones S1 S2 present Patient's skin is warm and dry. Chest pain is denied. Respiratory: No deficits noted. Airway is patent Breath sounds are clear bilaterally. Denies cough, shortness of breath. GI: Abdomen is round non-distended, Bowel sounds present X 4 quads. Abdomen is tender to palpation in right upper quadrant and right lower quadrant Reports lower abdominal pain, upper abdominal pain, nausea. : No deficits noted. No signs and/or symptoms were reported regarding the genitourinary system. EENT: No deficits noted. No signs and/or symptoms were reported regarding the EENT system. Derm: No deficits noted. No signs and/or symptoms reported regarding the dermatologic system. Musculoskeletal: No deficits noted. No signs and/or symptoms reported regarding the musculoskeletal system. 17:05 Reassessment: Patient appears in no apparent distress at this time. Patient states ab2 feeling better. Patient states symptoms have improved. Vital Signs: 13:56 BP 104 / 76; Pulse 79; Resp 18; Temp 98.2(TE); Pulse Ox 100% on R/A; Weight 56.25 kg; ld1 Height 5 ft. 0 in. (152.40 cm); Pain 2/10; 15:38 BP 117 / 80; Pulse 72; Resp 16; Pulse Ox 100% on R/A; ab2 16:36 BP 109 / 56; Pulse 66; Resp 16; Pulse Ox 98% on R/A; ab2 13:56 Body Mass Index 24.22 (56.25 kg, 152.40 cm) ld1 ED Course: 13:48 Patient arrived in ED. am2 13:48 Raad Pearson DO is Private Physician. am2 13:57 Triage completed. ld1 13:57 Arm band placed on right wrist. ld1 14:13 Kristian Todd is Primary Nurse. ab2 14:18 Son Rodriguez PA is PHCP. cp 14:39 Patient has correct armband on for positive identification. Bed in low position. Call ab2 light in reach. Side rails up X2. 14:39 No provider procedures requiring assistance completed. ab2 14:53 Urine Microscopic Only Sent. ab2 14:54 Basic Metabolic Panel Sent. ab2 14:54 CBC with Diff Sent. ab2 14:54 Hepatic Function Sent. ab2 14:54 Lipase Sent. ab2 14:54 Inserted saline lock: 18 gauge in right antecubital area, using aseptic technique. ab2 14:57 Adrian Perez MD is Attending Physician. cp 15:34 CT Abd/Pelvis - IV Contrast Only In Process Unspecified. EDMS 16:25 US Abdomen Limited: RUQ In Process Unspecified. EDMS 16:28 XRAY Chest (1 view) In Process Unspecified. EDMS 17:06 IV discontinued, intact, bleeding controlled, No redness/swelling at site. Pressure ab2 dressing applied. Administered Medications: 15:25 Drug: Ketorolac 15 mg Route: IVP; Site: right antecubital; ab2 17:05 Follow up: Response: No adverse reaction ab2 15:25 Drug: NS 0.9% 1000 ml Route: IV; Rate: 1 bolus; Site: right antecubital; ab2 17:05 Follow up: IV Status: Completed infusion ab2 15:25 Drug: Zofran (Ondansetron) 4 mg Route: IVP; Site: right antecubital; ab2 17:05 Follow up: Response: No adverse reaction ab2 Outcome: 16:58 Discharge ordered by MD. cp 17:06 Discharged to home ambulatory, with significant other. ab2 17:06 Condition: good 17:06 Discharge instructions given to patient, significant other, Instructed on discharge instructions, follow up and referral plans. medication usage, Demonstrated understanding of instructions, follow-up care, medications, Prescriptions given X 1. 17:06 Patient left the ED. ab2 Signatures: Dispatcher [employer] EDMS Son Rodriguez PA PA cp Moreno, Amanda am2 Dottie Snider, RN RN ld1 Kristian Todd ab2
[2021-11-10 17:13] VITALS: TEMP 98.2
[2021-11-10 17:16] VITALS: BP 109/56; O2SAT 98
== END 2021-11-10 17:06 | disposition home or self-care (01) ==
LOC: ER 13:47
DX: K59.00 Constipation, unspecified (principal); F17.210 Nicotine dependence, cigarettes, uncomplicated; Z91.040 Latex allergy status
CPT/HCPCS: 85025; 80048; 36415; 81025; 80076; 83690; 74177; 71045; 76705; Q9967; J7030; J2405; 81003; 81015; 96361; 96374; 96375; 99284